=== PATIENT | female | born 1955 | race Caucasian/White ===

== ENCOUNTER → 2016-09-07 17:12 | Outpatient (CLI) | payer OTHER | END | disposition home or self-care (01) | LOC: D.MAMMO 10:00 | DX: Z12.31 Encounter for screening mammogram for malignant neoplasm of breast (principal) ==

== ENCOUNTER 2016-10-17 09:07 | Outpatient (CLI) | payer OTHER | END 2016-10-17 23:59 | disposition home or self-care (01) | LOC: D.MAMMO 09:07 | DX: R92.2 Inconclusive mammogram (principal) ==

== ENCOUNTER 2019-02-20 11:04 | Outpatient (CLI) | payer BC | END 2019-02-20 23:59 | disposition home or self-care (01) | LOC: D.MAMMO 11:04 | PROVIDERS: ATTEND Family Medicine | DX: Z12.31 Encounter for screening mammogram for malignant neoplasm of breast (principal) ==